=== PATIENT | male | born 1970 | race Caucasian/White ===

== ENCOUNTER 2017-05-23 16:14 | Outpatient (CLI) | payer OTHER ==
--- NOTE | 2017-05-23 16:23 | RAD ---
PA AND LATERAL CHEST: History: Cough. FINDINGS/IMPRESSION: The heart size is borderline. The lungs are expanded without focal areas of consolidation, pneumothor ax, faisal pulmonary edema or pleural effusions. IMPRESSION: No acute process. POS: [facility]
== END 2017-05-23 16:15 | disposition home or self-care (01) ==
LOC: RAD-FRANK 16:14
PROVIDERS: ATTEND Nurse Practitioner Family
DX: R05 Cough (principal); R53.82 Chronic fatigue, unspecified; K21.9 Gastro-esophageal reflux disease without esophagitis; Z87.898 Personal history of other specified conditions
CPT/HCPCS: 71020